=== PATIENT | female | born 1945 | race Caucasian/White ===

== ENCOUNTER 2019-08-14 17:04 | Emergency (ER) | payer MEDICARE ==
[~2019-08-14] VITALS: Ht 154.9 cm; Wt 42.7 kg
[2019-08-14 17:15] VITALS: Ht 154.9 cm; Wt 42.7 kg
[2019-08-14] MEDS ORDERED: CHOLESTEROL MED (17:16)
[2019-08-14] MEDS ORDERED: HUMALOG 30100 UNITS/ (17:16)
[2019-08-14] MEDS ORDERED: GABAPENTIN100 MG (17:16)
[2019-08-14] MEDS ORDERED: BLOOD PRESSURE MED (17:16)
[2019-08-14] MEDS ORDERED: LIMBITROL 5/12.1 TAB (17:17)
[2019-08-14] MEDS ORDERED: CLEOCIN HCL300 MG PO (18:29)
[2019-08-14] MEDS ORDERED: KEFLEX500 MG PO (18:29)
[2019-08-14 19:11] VITALS: BP 148/72
== END 2019-08-14 19:12 | disposition home or self-care (01) ==
LOC: D.ER 17:04
DX: S93.401A Sprain of unspecified ligament of right ankle, initial encounter (principal); S90.811A Abrasion, right foot, initial encounter; S90.821A Blister (nonthermal), right foot, initial encounter; S90.31XA Contusion of right foot, initial encounter; E11.9 Type 2 diabetes mellitus without complications; I10 Essential (primary) hypertension; Z79.4 Long term (current) use of insulin; W01.0XXA Fall on same level from slipping, tripping and stumbling without subsequent striking against object, initial encounter; Y93.9 Activity, unspecified; Y92.9 Unspecified place or not applicable

== ENCOUNTER 2019-10-25 16:49 | Emergency (ER) | payer MEDICARE ==
[~2019-10-25] VITALS: Ht 154.9 cm; Wt 41.8 kg
[~2019-10-25 16:49] MED LIST: BLOOD PRESSURE MED; CHOLESTEROL MED; CLEOCIN HCL300 MG PO; GABAPENTIN100 MG; HUMALOG 30100 UNITS/; KEFLEX500 MG PO; LIMBITROL 5/12.1 TAB
[2019-10-25 17:11] VITALS: Ht 154.9 cm; Wt 41.8 kg
[2019-10-25] MEDS ORDERED: NEURONTIN800 MG PO (17:15)
[2019-10-25] MEDS ORDERED: ALDACTONE25 MG PO (17:16)
[2019-10-25] MEDS ORDERED: AMITRIPTYLINE H50 MG PO (17:16)
[2019-10-25] MEDS ORDERED: K-DUR20 MEQ PO (17:16)
[2019-10-25 18:12] LABS: HEMATOCRIT 45.2 % (36.0-48.0); HEMOGLOBIN 15.2 g/dL (12-16); LYMPHOCYTES 42.3 % (15-50); MCH 29.8 pg (26.0-34.0); MCHC 33.6 g/dL (31.0-37.0); MCV 88.6 fL (80.0-100.0); NEUTROPHILS 49.2 % (40-80); PLATELET COUNT 164 10x3/uL (130-400); RDW 12.3 % (11.5-14.5); WBC 5.8 10x3/uL (4.8-10.8)
[2019-10-25 18:23] LABS: ANION GAP 7.9 mmol/L (8-16); CARBON DIOXIDE 29.7 mmol/L (21.0-32.0); POTASSIUM - SERUM 3.6 mmol/L (3.5-5.1)
[2019-10-25 18:28] LABS: ALBUMIN 3.3 g/dL (3.4-5.0); BILIRUBIN - TOTAL 0.41 mg/dL (0.2-1.3); PROTEIN - SERUM 6.7 g/dL (6.4-8.2)
[2019-10-25] MEDS ORDERED: DOXYCYCLINE HY100 M2 PO (18:46)
[2019-10-25 19:33] VITALS: BP 189/76
== END 2019-10-25 19:30 | disposition home or self-care (01) ==
LOC: D.ER 16:49
PROVIDERS: Family Medicine
DX: E11.622 Type 2 diabetes mellitus with other skin ulcer (principal); I10 Essential (primary) hypertension; Z72.0 Tobacco use

== ENCOUNTER 2020-01-19 18:33 | Emergency (ER) | payer MEDICARE ==
[~2020-01-19] VITALS: Ht 154.9 cm; Wt 41.8 kg
[~2020-01-19 18:33] MED LIST changes: +ALDACTONE25 MG PO; +AMITRIPTYLINE H50 MG PO; +DOXYCYCLINE HY100 M2 PO; +K-DUR20 MEQ PO; +NEURONTIN800 MG PO
[2020-01-19 19:45] VITALS: BP 147/74; Ht 154.9 cm; Wt 41.8 kg
[2020-01-19] MEDS ORDERED: LANTUS INS100 UNITS/ SC (19:47)
[2020-01-19] MEDS ORDERED: NOVOLOG100 UNIT/1 SC (19:47)
[2020-01-19] MEDS ORDERED: CREON (PANCRELI1 CAP PO (19:48)
[2020-01-19] MEDS ORDERED: FUROSEMIDE40 MG PO (19:49)
[2020-01-19 21:40] LABS: BASOPHILS 0.3 % (0-2); HEMATOCRIT 41.7 % (36.0-48.0); HEMOGLOBIN 14.4 g/dL (12-16); IMMATURE GRANULOCYTES 0.2 % (0-5); LYMPHOCYTES 43.5 % (15-50); MCH 29.8 pg (26.0-34.0); MCHC 34.5 g/dL (31.0-37.0); MCV 86.3 fL (80.0-100.0); MONOCYTES 10.7 % (2-11); NEUTROPHILS 44.3 % (40-80); PLATELET COUNT 178 10x3/uL (130-400); RBC 4.83 10x6/uL (4.00-5.40); RDW 12.7 % (11.5-14.5); WBC 5.9 10x3/uL (4.8-10.8)
[2020-01-19 21:48] LABS: ANION GAP 12.8 mmol/L (8-16); CALCIUM 9.4 mg/dL (8.5-10.1); CARBON DIOXIDE 26.6 mmol/L (21.0-32.0); CREATININE - SERUM 1.2 mg/dL (0.6-1.3); POTASSIUM - SERUM 4.4 mmol/L (3.5-5.1)
[2020-01-19 21:55] LABS: ALBUMIN 3.6 g/dL (3.4-5.0); BILIRUBIN - TOTAL 0.39 mg/dL (0.2-1.3)
== END 2020-01-19 23:44 | disposition left against medical advice (07) ==
LOC: D.ER 18:33
PROVIDERS: Emergency Medicine
DX: R11.10 Vomiting, unspecified (principal); R53.1 Weakness